=== PATIENT | male | born 1950 | race Caucasian/White ===

== ENCOUNTER 2021-01-23 20:59 | Inpatient (IN) | payer MEDICARE ==
[~2021-01-23] VITALS: Ht 182.9 cm; Wt 92.3 kg
[2021-01-23] MEDS ORDERED: temazepam 15mg capsule PO PRN (21:00)
[2021-01-23] MEDS ORDERED: magnesium 4gm in 100ml NS 100 ML IV PRN (21:15)
[2021-01-23] MEDS ORDERED: HYDROcodone/acetaminophen 10/325mg tab PO PRN ×2 (21:15→23:15)
[2021-01-23] MEDS ORDERED: HYDROcodone/acetaminophen 5mg/325mg tablet PO PRN (21:15)
[2021-01-23] MEDS ORDERED: ondansetron/PF 4mg/2ml inj IV PRN ×3 (21:15→23:30)
[2021-01-23] MEDS ORDERED: magnesium Cl slow-release 64mg tablet PO PRN (21:15)
[2021-01-23] MEDS ORDERED: magnesium 2GM in 50ml NS 50 ML IV PRN (21:15)
[2021-01-23] MEDS ORDERED: potassium Cl 20 mEq SR tablet PO PRN ×2 (21:15)
[2021-01-23] MEDS ORDERED: potassium Cl 40MEQ/1/2NS 520ml 520 ML IV PRN ×2 (21:15)
[2021-01-23] MEDS: normal saline 1000ml 1,000 ML IV SCH (21:15)
[2021-01-23] MEDS ORDERED: morphine 2 MG/ML inj. syringe IV PRN ×3 (21:15→23:30)
[2021-01-23] MEDS ORDERED: acetaminophen 325mg tablet PO PRN ×2 (21:15)
[2021-01-23] MEDS ORDERED: BUPIVAcaine/PF 2.5mg/ml (0.25%) 10ml vial ONE (21:32)
[2021-01-23 21:47] LABS: CLARITY,URINE CLEAR (Clear); COLOR,URINE YELLOW (Yellow); GLUCOSE, URINE NEGATIVE (Neg); KETONES,URINE NEGATIVE (Neg); LEUKOCYTE ESTERASE ,URINE NEGATIVE (Neg); NITRITES, URINE NEGATIVE (Neg); OCCULT BLOOD,URINE TRACE-INTACT (Neg); PROTEIN,URINE NEGATIVE (Neg); UROBILINOGEN,URINE 0.2 E.U/dL (0.2-1.0)
[2021-01-23] MEDS ORDERED: midazolam 1 mg/ML 2ml injection ONE (21:54)
[2021-01-23] MEDS ORDERED: fentaNYL /PF 50mcg/ml 5ml ampule ONE (21:54)
--- NOTE | 2021-01-23 21:57 | NUR ---
PT TAKEN TO OR. STABLE VS. PT A&OX4 AND COOPERATIVE.
[2021-01-23 22:07] LABS: UA COLLECTION TYPE CLN CATCH MIDSTREAM
[2021-01-23 22:08] LABS: BACTERIA,URINE NONE SEEN /HPF (Neg); SQUAMOUS EPITHELIAL CELL,UR NONE SEEN /LPF (FEW); WBC,URINE 0-4 /HPF (0-4)
[2021-01-23] MEDS ORDERED: sevoflurane 250ml liquid IH ONE (22:12)
[2021-01-23] MEDS ORDERED: albumin (Human) 5% 250ml 250 ML IV ONE (23:03)
[2021-01-23] MEDS ORDERED: rocuronium 10mg/ml inj IV ONE (23:03)
[2021-01-23] MEDS ORDERED: LIDOcaine 2% (20mg/ml) 5ml vial ONE (23:03)
[2021-01-23] MEDS ORDERED: dexamethasone sod phosphate 4mg/ml inj. ONE (23:03)
[2021-01-23] MEDS ORDERED: propofol inj 20 ML IV ONE (23:03)
[2021-01-23] MEDS ORDERED: phenylephrine 10mg/ml inj. ONE (23:03)
[2021-01-23] MEDS ORDERED: ondansetron/PF 4mg/2ml inj ONE (23:03)
[2021-01-23] MEDS ORDERED: acetaminophen 1,000mg/100ml IV 100 ML IV ONE (23:04)
[2021-01-23] MEDS ORDERED: glycopyrrolate 0.2mg/ml inj ONE (23:08)
[2021-01-23] MEDS ORDERED: neostigmine methylsulfate 1 MG/ML 10ml vial ONE (23:08)
[2021-01-23] MEDS ORDERED: sugammadex 200mg/2ml injection IV ONE (23:17)
[2021-01-23 23:25] VITALS: BP 115/55
--- NOTE | 2021-01-23 23:25 | NUR ---
Received from OR via BED, accompanied by Anesthesiologist DR. KUMAR and report given by Anesthesiologist. PATIENT WAKING UP, NO S/S OF PAIN, V/S WNL, SCD ON, 20G TO RUE, LAP SURGICAL SITES TO ABDOMEN-CDI WITH GORDON DRAINING RED DRAINAGE, F/C PLACED IN OR-DRAINING TRAVIS URINE..
[2021-01-23 23:30] VITALS: BP 103/53
[2021-01-23] MEDS ORDERED: meperidine/PF 25mg/ml syringe IV PRN ×3 (23:30)
[2021-01-23] MEDS ORDERED: morphine 4 MG/ML inj SYRINge IV PRN (23:30)
[2021-01-23] MEDS ORDERED: proCHLORperazine 10 MG/2 ml inj IV PRN (23:30)
[2021-01-23] MEDS ORDERED: ringers solution, lacted 1,000 ML IV SCH (23:30)
[2021-01-23 23:40] VITALS: BP 97/56
[2021-01-23 23:50] VITALS: BP 107/56
[2021-01-24] VITALS (16 sets, daily range): BP systolic 105–137; BP diastolic 57–86
[2021-01-24] MEDS ORDERED: piperacillin/tazo 3.375gm/50ml 50 ML IV SCH
--- NOTE | 2021-01-24 00:45 | NUR ---
PT AWAKE, VSS, GORDON DRAIN EMPTIED, INTACT, F/C-DRAINING CLOUDY URINE, PIV X2 TO RIGHT UE NS RUNNING AT 125/HR TO ONE IN RIGHT HAND, DENIES PAIN, MENTIONED SLIGHT NAUSEA BUT REFUSING ANY MEDS, EXPLAINED THAT SOMETIMES BURPING AND HELP RELIEVE DISCOMFORT AFTER LAP PROCEDURES, LAP SITES X3 AND GORDON DRSG-CDI, SCDS IN PLACE, PATIENT TAKEN TO ROOM 350B WITH ALL BELONGINGS AND HOOKED UP TO MONITORS IN ROOM AND GIVEN CALL LIGHT, REPORT GIVEN TO ARIES PAUL, WHO HAS TAKEN OVER PATIENT CARE-ALL QUESTIONS ANSWERED.
[2021-01-24] MEDS: piperacillin/tazo 3.375gm/50ml 50 ML IV SCH ×3 (00:50→16:01)
--- NOTE | 2021-01-24 00:50 | NUR ---
Received patient from recovery, had the opportunity to acclimate patient to room, assess patient, and ask questions before assuming care
[2021-01-24] MEDS: pantoprazole 40 MG vial IV SCH ×3 (01:57→21:40)
[2021-01-24] MEDS: metroNIDAZOLE-Flagyl 500mg/NS 100 ML IV SCH ×2 (01:58→08:48)
[2021-01-24] MEDS: normal saline 1000ml 1,000 ML IV SCH ×3 (04:11→17:27)
[2021-01-24 06:13] LABS: BASOPHILS % (AUTO) 0 % (0-1); EOSINOPHILS % (AUTO) 0.2 % (0-6); HEMATOCRIT 38.9 % (42.0-52.0); HEMOGLOBIN 13.2 g/dl (14.0-17.9); LYMPHOCYTES # (AUTO) 0.5 X10'3 (1.1-4.8); LYMPHOCYTES % (AUTO) 2.7 % (21-51); MEAN CORPUSCULAR HEMOGLOBIN 31.1 PG (27.0-31.0); MEAN CORPUSCULAR VOLUME 91.4 FL (78-98); MEAN PLATELET VOLUME 9.6 FL (7.4-10.4); MONOCYTES # (AUTO) 0.7 X10'3 (0-0.9); MONOCYTES % (AUTO) 3.6 % (2-12); NEUTROPHILS # (AUTO) 17.4 X10'3 (1.8-7.7); NEUTROPHILS % (AUTO) 93.5 % (42-75); PLATELET COUNT 75 X10'3 (140-440); RED BLOOD COUNT 4.25 X10'6 (4.70-6.10); RED CELL DISTRIBUTION WIDTH 15.6 % (11.5-14.5); WHITE BLOOD COUNT 18.6 X10'3 (4.5-11.0)
[2021-01-24 06:18] LABS: ALANINE AMINOTRANSFERASE 24 U/L (12-78); ALBUMIN/GLOBULIN RATIO 1.1 (1.1-1.5); ALKALINE PHOSPHATASE 76 IU/L (46-116); ANION GAP 8 (8-16); ASPARTATE AMINO TRANSFERASE 23 U/L (10-37); BILIRUBIN,TOTAL 2.4 MG/DL (0.1-1.0); BLOOD UREA NITROGEN 25 MG/DL (7-18); CALCIUM 7.9 MG/DL (8.5-10.1); CREATININE 1.67 MG/DL (0.60-1.10); GLUCOSE 121 MG/DL (70-104); POTASSIUM 4.5 MMOL/L (3.5-5.1); SODIUM 146 MMOL/L (135-145); TOTAL CARBON DIOXIDE 24.9 MMOL/L (24-32); TOTAL PROTEIN 5.7 G/DL (6.4-8.2); eGFR 41 ML/MIN
[2021-01-24 06:24] LABS: CHLORIDE 113 MMOL/L (99-107)
[2021-01-24] MEDS: potassium CL 20mEq in D5-1/2NS 1,000 ML IV SCH ×4 (07:15→17:28)
[2021-01-24] MEDS ORDERED: NO HOME MEDS PO (07:16)
--- NOTE | 2021-01-24 07:18 | NUR ---
Problems reprioritized. Patient report given, questions answered & plan of care reviewed with Alicia CHRIS.
[2021-01-24] MEDS ORDERED: heparin, porcine 5000 units/ml vial SQ SCH (08:00)
[2021-01-24] MEDS: K and/or MAG REPLACEMENT MC SCH ×2 (08:00→20:00)
[2021-01-24 09:09] LABS: TOTAL CELLS COUNTED 100
[2021-01-24 09:10] LABS: PLATELET ESTIMATE DECREASED
[2021-01-24] MEDS ORDERED: NO HOME MEDS (11:10)
--- NOTE | 2021-01-24 12:33 | NUR ---
Pt's family stated pt had lost his glasses, but pt found them 20min later on his bedframe. Pt wearing glasses now.
--- NOTE | 2021-01-24 16:30 | NUR ---
Report given to Yuly CHRIS, all questions answered. Pt doing well in room, eating clear liquid dinner. Patient is willing to get better pain control by taking pain meds this evening after I talked to him about the importance of pain relief and he understands that it is important for healing
--- NOTE | 2021-01-24 18:15 | NUR ---
Patient in room [facility]. I have received report from ARIES Vargas and had the opportunity to ask questions and assume patient care. Pt sitting up in bed tofermin. no complaints. Addendum: 01/24/21 at 1927 by Antonia Carr RN Amended: Links added.
[2021-01-24] MEDS: HYDROcodone/acetaminophen 7.5MG/325MG per 15ml UD CUP PO PRN (21:40)
[2021-01-25] MEDS: normal saline 1000ml 1,000 ML IV SCH ×4 (00:11→22:10)
[2021-01-25] MEDS: piperacillin/tazo 3.375gm/50ml 50 ML IV SCH ×3 (00:30→16:27)
[2021-01-25 00:44] VITALS: BP 112/65
[2021-01-25] MEDS: potassium CL 20mEq in D5-1/2NS 1,000 ML IV SCH ×3 (01:15→14:39)
[2021-01-25] MEDS: HYDROcodone/acetaminophen 7.5MG/325MG per 15ml UD CUP PO PRN (05:50)
--- NOTE | 2021-01-25 06:00 | NUR ---
Patient in room [facility]. I have received report from Alessio and had the opportunity to ask questions and assume patient care.
--- NOTE | 2021-01-25 06:03 | NUR ---
F/c jessi hernandez. Addendum: 01/25/21 at 0604 by Antonia Carr RN Amended: Links added.
--- NOTE | 2021-01-25 06:34 | NUR ---
Problems reprioritized. Patient report given, questions answered & plan of care reviewed with ARIES Sneed. Addendum: 01/25/21 at 3634 by Antonia Carr RN Amended: Links added.
[2021-01-25 06:36] LABS: BASOPHILS % (AUTO) 0.1 % (0-1); EOSINOPHILS % (AUTO) 0.3 % (0-6); HEMATOCRIT 37.4 % (42.0-52.0); HEMOGLOBIN 12.5 g/dl (14.0-17.9); LYMPHOCYTES # (AUTO) 1.1 X10'3 (1.1-4.8); LYMPHOCYTES % (AUTO) 6.9 % (21-51); MEAN CORPUSCULAR HEMOGLOBIN 30.9 PG (27.0-31.0); MEAN CORPUSCULAR HGB CONC 33.4 g/dL (33.0-36.5); MEAN CORPUSCULAR VOLUME 92.6 FL (78-98); MEAN PLATELET VOLUME 9.6 FL (7.4-10.4); MONOCYTES # (AUTO) 0.7 X10'3 (0-0.9); MONOCYTES % (AUTO) 4.5 % (2-12); NEUTROPHILS # (AUTO) 13.8 X10'3 (1.8-7.7); NEUTROPHILS % (AUTO) 88.2 % (42-75); PLATELET COUNT 65 X10'3 (140-440); RED BLOOD COUNT 4.05 X10'6 (4.70-6.10); RED CELL DISTRIBUTION WIDTH 15.7 % (11.5-14.5); WHITE BLOOD COUNT 15.7 X10'3 (4.5-11.0)
[2021-01-25 07:00] VITALS: BP 128/83
[2021-01-25 07:06] LABS: ALANINE AMINOTRANSFERASE 18 U/L (12-78); ALBUMIN 2.7 G/DL (3.4-5.0); ALBUMIN/GLOBULIN RATIO 0.9 (1.1-1.5); ALKALINE PHOSPHATASE 84 IU/L (46-116); ANION GAP 8 (8-16); ASPARTATE AMINO TRANSFERASE 15 U/L (10-37); BILIRUBIN,TOTAL 0.8 MG/DL (0.1-1.0); BLOOD UREA NITROGEN 18 MG/DL (7-18); BUN/CREATININE RATIO 11.7 (5.4-32.0); CALCIUM 7.8 MG/DL (8.5-10.1); CHLORIDE 111 MMOL/L (99-107); CREATININE 1.54 MG/DL (0.60-1.10); GLUCOSE 128 MG/DL (70-104); MAGNESIUM 2.4 MG/DL (1.5-2.4); POTASSIUM 4.4 MMOL/L (3.5-5.1); SODIUM 145 MMOL/L (135-145); TOTAL CARBON DIOXIDE 26.2 MMOL/L (24-32); TOTAL PROTEIN 5.7 G/DL (6.4-8.2); eGFR 45 ML/MIN
[2021-01-25] MEDS: K and/or MAG REPLACEMENT MC SCH ×2 (08:00→20:00)
[2021-01-25] MEDS: pantoprazole 40 MG vial IV SCH ×2 (08:21→22:09)
[2021-01-25 11:00] VITALS: BP 132/69
[2021-01-25 19:00] VITALS: BP 122/67
[2021-01-25] MEDS: magnesium hydroxide 30ml (MOM) UD suspension PO SCH (22:08)
[2021-01-25] MEDS: lactobacillus rhamnosus 10,000 MMU CELLS/CAPSULE PO SCH (22:08)
[2021-01-26] VITALS: BP 142/75
[2021-01-26] MEDS: piperacillin/tazo 3.375gm/50ml 50 ML IV SCH ×2 (00:52→10:45)
[2021-01-26] MEDS: normal saline 1000ml 1,000 ML IV SCH (04:05)
[2021-01-26 06:30] VITALS: BP 123/82
--- NOTE | 2021-01-26 07:00 | NUR ---
Patient in room [facility]. I have received report from ARIES Navarro and had the opportunity to ask questions and assume patient care.
[2021-01-26] MEDS: potassium CL 20mEq in D5-1/2NS 1,000 ML IV SCH ×2 (07:15→10:46)
[2021-01-26 07:16] LABS: BASOPHILS % (AUTO) 0.2 % (0-1); EOSINOPHILS % (AUTO) 0.6 % (0-6); HEMATOCRIT 37.6 % (42.0-52.0); HEMOGLOBIN 12.6 g/dl (14.0-17.9); LYMPHOCYTES # (AUTO) 0.8 X10'3 (1.1-4.8); LYMPHOCYTES % (AUTO) 10.3 % (21-51); MEAN CORPUSCULAR HEMOGLOBIN 30.8 PG (27.0-31.0); MEAN CORPUSCULAR HGB CONC 33.6 g/dL (33.0-36.5); MEAN CORPUSCULAR VOLUME 91.6 FL (78-98); MEAN PLATELET VOLUME 9.8 FL (7.4-10.4); MONOCYTES # (AUTO) 0.4 X10'3 (0-0.9); MONOCYTES % (AUTO) 4.3 % (2-12); NEUTROPHILS # (AUTO) 6.9 X10'3 (1.8-7.7); NEUTROPHILS % (AUTO) 84.6 % (42-75); PLATELET COUNT 78 X10'3 (140-440); RED CELL DISTRIBUTION WIDTH 15.3 % (11.5-14.5); WHITE BLOOD COUNT 8.2 X10'3 (4.5-11.0)
[2021-01-26 07:57] LABS: ALANINE AMINOTRANSFERASE 30 U/L (12-78); ALBUMIN 2.6 G/DL (3.4-5.0); ALBUMIN/GLOBULIN RATIO 0.9 (1.1-1.5); ALKALINE PHOSPHATASE 143 IU/L (46-116); ANION GAP 7 (8-16); ASPARTATE AMINO TRANSFERASE 23 U/L (10-37); BILIRUBIN,TOTAL 1.5 MG/DL (0.1-1.0); BLOOD UREA NITROGEN 15 MG/DL (7-18); BUN/CREATININE RATIO 10.4 (5.4-32.0); CALCIUM 7.9 MG/DL (8.5-10.1); CHLORIDE 112 MMOL/L (99-107); CREATININE 1.44 MG/DL (0.60-1.10); GLUCOSE 87 MG/DL (70-104); MAGNESIUM 2.1 MG/DL (1.5-2.4); POTASSIUM 4.2 MMOL/L (3.5-5.1); SODIUM 146 MMOL/L (135-145); TOTAL CARBON DIOXIDE 26.8 MMOL/L (24-32); TOTAL PROTEIN 5.6 G/DL (6.4-8.2); eGFR 49 ML/MIN
[2021-01-26] MEDS: K and/or MAG REPLACEMENT MC SCH (08:00)
[2021-01-26] MEDS: magnesium hydroxide 30ml (MOM) UD suspension PO SCH (10:45)
[2021-01-26] MEDS: lactobacillus rhamnosus 10,000 MMU CELLS/CAPSULE PO SCH (10:45)
[2021-01-26] MEDS: pantoprazole 40 MG vial IV SCH (10:45)
[2021-01-26 11:00] VITALS: BP 124/73
--- NOTE | 2021-01-26 13:59 | NUR ---
PAGER ID: [phone] MESSAGE: Marielena Surg [id number] Re: Shannon MehtaB per Dr Delgado ok to discharge and follow up in 1 week if you want to to discharge
[2021-01-26] MEDS ORDERED: HYDR-3965 PO (14:18)
--- NOTE | 2021-01-26 14:18 | NUR ---
Phone number given to patient so he can call Dr Delgado office today to make follow up appt for 1 week
--- NOTE | 2021-01-26 16:20 | NUR ---
DC inst provided to pt. IV x2 DC'd, tips intact. All belongings sent w/pt. WC to vehicle.
== END 2021-01-26 16:31 | disposition home or self-care (01) | DRG 854 ==
LOC: ER 21:00 → UNDOADMIN 21:17 → SUR 3N 21:17 → UNDOADMIN 21:55 → SUR 3N 01-26 14:04
PROVIDERS: ADMIT Internal Medicine; ATTEND Family Medicine
PROC: 0DTJ4ZZ Resection of Appendix, Percutaneous Endoscopic Approach (ICD-10-PCS; principal; 2021-01-23 22:12)
DX: A41.9 Sepsis, unspecified organism (principal); K35.80 Unspecified acute appendicitis; N17.9 Acute kidney failure, unspecified; K56.7 Ileus, unspecified; Z60.2 Problems related to living alone; D69.6 Thrombocytopenia, unspecified
CPT/HCPCS: 36415; 71045; 80053; 81001; 83605; 83735; 85007; 85025; 87040; 87077; 87081; 87186; 88304; 93005; 99285; A4215; A4314; A4618; A6402; A6407; A7000; C9113; C9399; G0378; J0131; J1100; J2001; J2250; J2270; J2370; J2405; J2543; J2704; J2710; J3010; J3480; J3490; J7030; J7120; P9045